=== PATIENT | female | born 1945 | race Caucasian/White ===

== ENCOUNTER 2017-05-04 11:40 | Emergency (ER) | payer MEDICARE, BC ==
[~2017-05-04] VITALS: Ht 165.1 cm; Wt 73.0 kg
[~2017-05-04 11:40] MED LIST: BAYER ASPIRIN E81 MG PO; CIPROFLOXACN500 MG PO; ESTRACE2 M1 PO; FISH OIL1 CAP PO; FLAXSEED OIL PO; LOSARTAN/HCT1 TA2 PO; MAGNESIUM 250 M1 TAB PO; METOPROL TAR25 MG PO; MULTIVITAMI1 PO; ONDANSETRON4 MG PO; PREVACID30 M3 PO; PRILOSEC20 MG PO; ULTRAM50 M1 PO
[2017-05-04] MEDS ORDERED: AMLODIPINE5 MG PO (11:51)
[2017-05-04] MEDS ORDERED: PRAVASTATIN SOD20 MG PO (11:53)
[2017-05-04] MEDS ORDERED: PROAIR HFA108 MCG/AC (11:54)
[2017-05-04] MEDS ORDERED: SPIRIVA HANDIH18 MCG (11:54)
[2017-05-04] MEDS ORDERED: PRAMIPEXOLE0.5 MG PO (11:54)
[2017-05-04] MEDS ORDERED: LASIX 40 MG40 MG/TAB PO (11:55)
[2017-05-04] MEDS ORDERED: HYDRALAZINE HC100 MG PO (11:55)
[2017-05-04 12:25] LABS: IMMATURE GRANULOCYTES 0.3 % (0.0-1.0); MEAN CELL VOLUME 92.5 fL CALC (80.0-100.0); MEAN CORPUSCULAR HGB CONC 30.3 g/L CALC (32.0-36.0); NEUT# 3.8 thou/uL (2.00-7.15); RED BLOOD COUNT 2.14 mill/uL (4.20-5.60); RED CELL DISTRI WIDTH 19.9 % (11.5-15.5)
[2017-05-04 12:34] LABS: HEMATOCRIT 19.8 % (37.0-47.0)
[2017-05-04 12:44] LABS: PROTHROMBIN TIME 10.8 SECONDS (9.0-12.5)
[2017-05-04 12:46] LABS: CREATININE 1.1 mg/dL (0.5-1.0)
[2017-05-04 14:00] VITALS: BP 135/60
[2017-05-04 14:32] VITALS: BP 133/73
[2017-05-04 15:17] VITALS: BP 144/70
== END 2017-05-04 15:20 | disposition short-term general hospital (02) ==
LOC: ED 11:40
PROVIDERS: Family Medicine
PROC: 02HV33Z Insertion of Infusion Device into Superior Vena Cava, Percutaneous Approach (ICD-10-PCS; principal; 2017-05-04)
PROC: 30233N1 Transfusion of Nonautologous Red Blood Cells into Peripheral Vein, Percutaneous Approach (ICD-10-PCS; 2017-05-04)
DX: K92.1 Melena (principal); D64.9 Anemia, unspecified; I10 Essential (primary) hypertension; E78.2 Mixed hyperlipidemia; N18.3 Chronic kidney disease, stage 3 (moderate); R06.02 Shortness of breath
CPT/HCPCS: J2354; P9016; S0164